=== PATIENT | female | born 1985 | race Caucasian/White ===

== ENCOUNTER 2022-09-01 11:07 | Outpatient (CLI) | payer OTHER, SELFPAY ==
--- NOTE | ~2022-09-01 | US_ITS ---
EXAMINATION: US art doppler w press LE DATE: 09/01/2022 12:21 INDICATION: Right lower limb pain. TECHNIQUE: Segmental pressures and plethysmographic and Doppler waveforms of the brachial and lower e xtremity arteries were obtained. COMPARISON: None. FINDINGS: Right and left brachial artery pressures of 106 mm Hg and 103 mm Hg, respectively, are concordant (no rmal difference <= 30 mmHg). The right high-thigh pressure index is 1.55 (normal > 1.2). The right ankle-brachial index (HUNG) is 1 .26 (normal >= 0.9-1.0). The right great toe-brachial index (TBI) is 0.78 (normal >= 0.65). Arterial Doppler waveforms are at least triphasic from common femoral artery to the ankle. The left high-thigh pressure index is 1.42. The left HUNG is 1.27. The left TBI is 0.47. Arterial Dopp ler waveforms are at least triphasic from common femoral artery to posterior tibial artery and biphas ic in dorsalis pedis. IMPRESSION: 1. Normal right HUNG and TBI. No right-sided arterial occlusive disease. 2. Normal left HUNG and mild decreased left TBI, consistent with left-sided arterial occlusive disease . Reviewed, dictated and finalized at location A. UCTION EXPERT IMPRESSION: 1. Normal right HUNG and TBI. No right-sided arterial occlusive disease. 2. Normal left HUNG and mild decreased left TBI, consistent with left-sided veronica rial occlusive disease.
--- NOTE | ~2022-09-01 | US_ITS ---
EXAMINATION: US venous doppler LE DATE: 09/01/2022 12:21 INDICATION: Right lower limb pain and erythema TECHNIQUE: Grayscale ultrasound images without and with compression and Doppler ultrasound images of the right lower extremity veins were obtained. COMPARISON: None. FINDINGS: The visualized portions of right common femoral vein, profunda (deep) femoral vein, femoral vein, pop liteal vein, peroneal trunk, posterior tibial veins, peroneal veins, gastrocnemius vein and greater s aphenous vein outflow are patent. IMPRESSION: 1. No deep venous thrombosis in the right lower limb. Reviewed, dictated and finalized at location A. K OR BLOCK [employer]KER
== END 2022-09-01 11:08 | disposition home or self-care (01) ==
PROVIDERS: PCP Physician Assistant; Visit Provider Physician Assistant
DX: M79.604 Pain in right leg (principal)
CPT/HCPCS: 93923; 93971

== ENCOUNTER 2022-09-03 13:40 | Outpatient (CLI) | payer OTHER, SELFPAY ==
--- NOTE | ~2022-09-03 | US_ITS ---
EXAMINATION: US thyroid DATE: 09/03/2022 14:26 INDICATION: Neck swelling TECHNIQUE: Multiple ultrasound images of the thyroid were obtained. COMPARISON: None. FINDINGS: The right thyroid lobe measures 4.7 x 1.6 x 2.0 cm. The left thyroid lobe measures 5.1 x 1.5 x 2.0 c m. 6 mm wider than tall solid hypoechoic nodule with smooth margins and without echogenic foci in th e left thyroid lobe (TI-RADS 4, moderately suspicious , FNA if >=1.5 cm, annual followup is >=1 cm). There are couple smaller anechoic (TI-RADS 1, benign, no FNA recommended) cystic nodules measuring 3 mm in the left thyroid lobe and 2 mm in the right thyroid lobe. There is normal echotexture, echogeni city and vascular flow throughout the remainder of the thyroid gland. IMPRESSION: 1. A few a benign subcentimeter thyroid nodules which remain significantly below the size threshold f or either biopsy or follow-up. Reviewed, dictated and finalized at location A. ME [employer]AX EXPERT IMPRESSION: 1. A few a benign subcentimeter thyroid nodules which remain significantly belo w the size threshold for either biopsy or follow-up.
== END 2022-09-03 13:41 | disposition home or self-care (01) ==
PROVIDERS: PCP Physician Assistant; Visit Provider Physician Assistant
DX: R22.1 Localized swelling, mass and lump, neck (principal)
CPT/HCPCS: 76536

== ENCOUNTER 2024-11-12 11:58 | Outpatient (CLI) | payer OTHER, SELFPAY ==
--- NOTE | ~2024-11-12 | US_ITS ---
EXAMINATION: US thyroid DATE: 11/12/2024 12:15 INDICATION: Nontoxic goiter, unspecified. TECHNIQUE: Multiple ultrasound images of the thyroid were obtained. COMPARISON: Ultrasound 09/03/2022 FINDINGS: The right thyroid lobe measures 4.9 x 1.4 x 1.6 cm. The left thyroid lobe measures 5.0 x 1.3 x 1.6 c m. In the left thyroid lobe, there is a 7 mm solid, hypoechoic, wider than tall nodule with smooth m argin without echogenic foci (TI-RADS TR4). IMPRESSION: 1. Small thyroid nodule, likely not clinically significant. No follow-up is needed. Reviewed, dictated and finalized at location A. IMPRESSION: 1. Small thyroid nodule, likely not clinically significant. No follow-up is nee ded.
== END 2024-11-12 11:59 | disposition home or self-care (01) ==
PROVIDERS: PCP Physician Assistant; Visit Provider Obstetrics & Gynecology
DX: R91.1 Solitary pulmonary nodule (principal); E04.9 Nontoxic goiter, unspecified
CPT/HCPCS: 76536